=== PATIENT | female | born 1985 | race Hispanic/Latino ===

== ENCOUNTER 2018-06-20 11:34 | Emergency (ER) | payer OTHER ==
[2018-06-20 11:39] VITALS: RESP 18; BMI 25.8
--- NOTE | 2018-06-20 12:09 | ED PDOC ---
HPI: Female Pain Time Seen by Provider: 06/20/18 11:51 Chief Complaint (Nursing): Female Genitourinary Chief Complaint (Provider): genitourinary problem History Per: Patient History/Exam Limitations: no limitations Onset/Duration Of Symptoms: Days (x1) Additional Complaint(s): Samina Christie, a 32 year old female with no past medical history, presents to the emergency department for a genitourinary problem. Patient states she placed a tampon at 2100 last night, got drunk and had intercourse with her boyfriend and does not remember removing the tampon. No further medical complaints. Past Medical History Reviewed: Historical Data, Nursing Documentation, Vital Signs Vital Signs: Last Vital Signs Temp 98 F 06/20/18 11:38 Pulse 106 H 06/20/18 11:38 Resp 18 06/20/18 11:38 BP 135/93 H 06/20/18 11:38 Pulse Ox 97 06/20/18 11:38 - Medical History PMH: No Chronic Diseases - Surgical History Surgical History: No Surg Hx - Family History Family History: States: Unknown Family Hx - Allergies Allergies/Adverse Reactions: Allergies Allergy/AdvReac Type Severity Reaction Status Date / Time No Known Allergies Allergy Verified 06/20/18 11:43 Review of Systems ROS Statement: Except As Marked, All Systems Reviewed And Found Negative Genitourinary Female: Positive for: Other (tampon in vaginal vault) Physical Exam - Reviewed Nursing Documentation Reviewed: Yes Vital Signs Reviewed: Yes - Physical Exam Appears: Positive for: Well, Non-toxic, No Acute Distress Head Exam: Positive for: ATRAUMATIC, NORMAL INSPECTION, NORMOCEPHALIC Cardiovascular/Chest: Positive for: Regular Rate, Rhythm Respiratory: Positive for: Normal Breath Sounds. Negative for: Respiratory Distress Pelvic Exam: Negative for: Tender W/Cervical Motion, Tender Adnexa, Tender Uterus Neurologic/Psych: Positive for: Alert, Oriented - ECG O2 Sat by Pulse Oximetry: 97 (RA) Pulse Ox Interpretation: Normal Medical Decision Making Medical Decision Making: Time: 11:51 Initial Impression: foreign body removed from vaginal vault Initial Plan: -Pelvic exam with [facility] as mail room, tampon in vaginal vault removed without difficulty Pt advised to refrain from further tampon use this cycle. Scribe Attestation: Documented by Emy Robledo, acting as a scribe for Wendy Carballo MD. Provider Scribe Attestation: All medical record entries made by the Scribe were at my direction and personally dictated by me. I have reviewed the chart and agree that the record accurately reflects my personal performance of the history, physical exam, medical decision making, and the department course for this patient. I have also personally directed, reviewed, and agree with the discharge instructions and disposition. Disposition - Clinical Impression Clinical Impression: Foreign body in vagina - Disposition Disposition: Routine/Home Disposition Time: 12:09 Condition: GOOD Additional Instructions: FOLLOW-UP WITH [facility] WITHIN 2 DAYS FOR REEVALUATION. Instructions: Menstruation Forms: [employer] (Latvian)
--- NOTE | 2018-06-20 12:09 | ED PDOC ---
HPI: Female Pain Time Seen by Provider: 06/20/18 11:51 Chief Complaint (Nursing): Female Genitourinary Past Medical History Vital Signs: Last Vital Signs Temp 98 F 06/20/18 11:38 Pulse 106 H 06/20/18 11:38 Resp 18 06/20/18 11:38 BP 135/93 H 06/20/18 11:38 Pulse Ox 97 06/20/18 11:38 - Allergies Allergies/Adverse Reactions: Allergies Allergy/AdvReac Type Severity Reaction Status Date / Time No Known Allergies Allergy Verified 06/20/18 11:43 - ECG O2 Sat by Pulse Oximetry: 97 Disposition - Clinical Impression Clinical Impression: Foreign body in vagina - Disposition Disposition: Routine/Home Disposition Time: 12:06 Condition: GOOD Additional Instructions: FOLLOW-UP WITH [facility] WITHIN 2 DAYS FOR REEVALUATION. Instructions: Menstruation
[2018-06-20 12:22] VITALS: BP 137/90; PULSE 80; TEMP 98.3
[2018-06-21 14:27] VITALS: O2SAT 97
== END 2018-06-20 12:55 | disposition home or self-care (01) ==
LOC: H.ER 11:34
DX: T19.2XXA Foreign body in vulva and vagina, initial encounter (principal)